=== PATIENT | female | born 1975 | race Two or more races ===

== ENCOUNTER 2018-12-21 21:47 | Emergency (ER) | payer OTHER ==
[~2018-12-21] VITALS: Ht 165.1 cm; Wt 79.8 kg
[2018-12-22] MEDS ORDERED: KETOROLAC TROMETH 60MG/2ML VIAL IM ONE (05:00)
[2018-12-22] MEDS ORDERED: METHOCARBAMOL 500 MG TAB PO ONE (05:00)
[2018-12-22 05:22] VITALS: BP 138/85
== END 2018-12-22 05:30 | disposition home or self-care (01) ==
LOC: EDBD 21:47 → ER 21:49
DX: S33.5XXA Sprain of ligaments of lumbar spine, initial encounter (principal); E11.40 Type 2 diabetes mellitus with diabetic neuropathy, unspecified; E78.5 Hyperlipidemia, unspecified; V43.52XA Car driver injured in collision with other type car in traffic accident, initial encounter; Y93.89 Activity, other specified; Y99.8 Other external cause status; Y92.410 Unspecified street and highway as the place of occurrence of the external cause
CPT/HCPCS: 70450; 71046; 72125; 72131; 96372; 99284; J1885

== ENCOUNTER 2022-02-10 20:15 | Emergency (ER) | payer OTHER ==
[~2022-02-10] VITALS: Ht 167.6 cm; Wt 102.0 kg
[2022-02-10] MEDS ORDERED: ASPirin 325 MG TAB PO ONE (20:30)
[2022-02-10 20:58] LABS: Basophils # (auto) 0.1 10 ^3/uL (0-0.2); Basophils % (auto) 1.1 % (0.0-2.0); Eosinophils # (auto) 0.1 10 ^3/uL (0-0.8); Eosinophils % (auto) 1.7 % (0.0-7.0); Hematocrit 39.9 % (36.0-46.0); Hemoglobin 13.1 g/dL (12.2-16.2); Lymphocytes # (auto) 1.8 10 ^3/uL (0.4-5.4); Mean Corpuscular Hemoglobin 28.6 pg (28.0-32.0); Mean Corpuscular Hgb Conc. 32.7 g/dL (32.0-36.0); Mean Corpuscular Volume 87.2 fL (80.0-100.0); Monocytes # (auto) 0.5 10 ^3/uL (0-1.3); Monocytes % (auto) 5.4 % (0.0-12.0); Neutrophils % (auto) 70.8 % (37.0-80.0); Red Blood Cells 4.58 10^6/uL (4.0-5.20); Red Cell Distribution Width 14.3 % (11.8-14.3); White Blood Cell 8.5 10^3/uL (4.4-10.8)
[2022-02-10 21:15] LABS: Albumin 3.8 g/dL (3.4-5.0); Calcium 8.9 mg/dL (8.5-10.1); Potassium 3.8 mmol/L (3.5-5.1)
[2022-02-10 21:18] LABS: BUN/Creatinine Ratio 11.6; Bilirubin, Total 0.3 mg/dL (0.2-1.0); Total Protein 7.5 g/dL (6.4-8.2)
[2022-02-11 00:52] VITALS: BP 122/72
== END 2022-02-11 00:48 | disposition home or self-care (01) ==
LOC: ER 20:16
DX: R07.89 Other chest pain (principal); E78.5 Hyperlipidemia, unspecified; Z90.89 Acquired absence of other organs
CPT/HCPCS: 36415; 80053; 83690; 84484; 85025; 93005

== ENCOUNTER 2025-02-02 07:14 | Emergency (ER) | payer OTHER ==
[~2025-02-02] VITALS: Ht 167.6 cm; Wt 72.0 kg
[2025-02-02 07:17] VITALS: BP 164/137; PULSE 86; RESP 18; O2SAT 98
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
[2025-02-02 08:00] VITALS: TEMP 98.2
[2025-02-02] MEDS: ACETAMINOPHEN 325 MG TAB PO ONE (08:00)
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
== END 2025-02-02 09:26 | disposition home or self-care (01) ==
LOC: ER 07:14 → EDBD 07:14 → ER 09:26
DX: S39.012A Strain of muscle, fascia and tendon of lower back, initial encounter (principal); R51.9 Headache, unspecified; R07.9 Chest pain, unspecified; E11.9 Type 2 diabetes mellitus without complications; Z90.49 Acquired absence of other specified parts of digestive tract; V89.2XXA Person injured in unspecified motor-vehicle accident, traffic, initial encounter; Y93.89 Activity, other specified; Y92.410 Unspecified street and highway as the place of occurrence of the external cause; Y99.8 Other external cause status
CPT/HCPCS: 70450; 71046